=== PATIENT | female | born 2000 | race Caucasian/White ===

== ENCOUNTER 2023-11-19 23:08 | Emergency (ER) | payer BC ==
[~2023-11-19] VITALS: Ht 149.9 cm; Wt 50.0 kg
[2023-11-19 23:23] VITALS: BP 141/92; PULSE 74; RESP 18; O2SAT 100
[2023-11-20] VITALS: TEMP 98.7
[2023-11-20] MEDS: ACETAMINOPHEN 650MG/20.3ML UDC PO ONE
[2023-11-20] MEDS: DEXAMETHASONE 10 MG/ML VIAL PO ONE (00:01)
[2023-11-20] MEDS ORDERED: MED4 MT (00:43)
[2023-11-20] MEDS ORDERED: OFLO5DRO4 EACH EAR (00:43)
== END 2023-11-20 00:58 | disposition home or self-care (01) ==
LOC: ER 23:08
DX: J02.9 Acute pharyngitis, unspecified (principal); H10.9 Unspecified conjunctivitis; H60.92 Unspecified otitis externa, left ear
CPT/HCPCS: 99283; 87430; 87070; J1100